=== PATIENT | male | born 1975 | race Caucasian/White ===

== ENCOUNTER 2017-06-18 19:25 | Inpatient (IN) ==
[2017-06-18] MEDS ORDERED: 0.9 % Sodium Chloride 1,000 ML IVC ONE (20:07)
[2017-06-18] MEDS ORDERED: Vancomycin 1,000 MG VIAL IVPB ONE (20:07)
--- NOTE | 2017-06-18 20:13 | Emergency Department Note ---
Disposition Clinical Impression: Abscess, gluteal, left Disposition: Admitted As Inpatient Condition: Good Forms: ED Satisfaction Letter Time of Disposition: 20:14 Skin/Abscess/FB HPI Chief complaint: ED Skin/Abscess/Foreign Body Stated complaint: rectal abscess Time Seen by Provider: 06/18/17 19:49 Source: patient Mode of arrival: ambulatory Limitations: no limitations Nursing Notes Reviewed: Yes Vital Signs Reviewed: Yes HPI Narrative: 41 year old male presents to the eD with complaints of left glueteal abscess and drainage. He states taht he was seen here a few days ago and essentially tried outpainet therapy wiht bactrim and keflex and failed therapy. He states that there is incresed drainage and that the rednes around the area is getting worse and is having intermittmenet subjective fevers at home without nausea or vomitting. He is a diabetic. Talha denies history of MRSA. Home Medications Medication Instructions Recorded Confirmed metFORMIN [Glucophage] 1,000 mg PO BIDWM 01/04/17 06/18/17 Previous Rx's Medication Instructions Recorded HYDROcodone/Acet 5/325 mg [Cardwell 1 tab PO Q6H PRN #3 tab 06/16/17 5-325 mg] Sulfamethoxazole/Trimeth DS 1 each PO BID 10 Days tablet 06/16/17 [Bactrim DS] cephALEXin [Keflex] 500 mg PO QID 10 Days capsule 06/16/17 Allergies Allergy/AdvReac Type Severity Reaction Status Date / Time Penicillins [PCN] Allergy Anaphylaxis Verified 05/31/17 17:27 Constitutional: Reports: fever, chills, weakness. Denies: weight change Eyes: Denies: eye pain, eye discharge, vision change ENT ED: Denies: ear pain, throat pain, dental pain, hearing loss, epistaxis, congestion, dysphagia Cardiovascular: Denies: chest pain, palpitations, dyspnea on exertion, edema, syncope Respiratory: Denies: cough, dyspnea, wheezes, hemoptysis, stridor Gastrointestinal: Denies: abdominal pain, nausea, vomiting, diarrhea, constipation, hematemesis, melena, hematochezia Genitourinary: Denies: urgency, dysuria, frequency, hematuria Musculoskeletal: Denies: back pain, neck pain, arthralgia, myalgia Integumentary: Reports: as per HPI, other (buttock abscess). Denies: rash, abrasion, lesions Neurological: Denies: headache, weakness, numbness, paresthesias, confusion, abnormal gait, vertigo Psychiatric: Denies: anxiety, depression, suicidal thoughts, homicidal thoughts , auditory hallucinations, visual hallucinations Endocrine: Denies: fatigue Hematological/Lymphatic: Denies: easy bleeding, easy bruising Allergic/Immunologic: Denies: facial swelling, urticaria Past Medical History - Past Medical History Medical history: Reports: asthma, diabetes, hypertension, other Surgical history: Reports: no surgical history Psychiatric history: Reports: no psych history - Social History Smoking Status: Never smoker Smokeless Tobacco Status: Yes Alcohol use: Reports: occasionally Drug use: Reports: none Physical Exam - General Limitations: no limitations General appearance: alert, in no apparent distress, obese - Head Head exam: atraumatic, normocephalic, normal inspection - Eye Eye exam: Present: normal appearance, PERRL, EOMI - Expanded Eye Exam Pupils: Left: reactive - ENT ENT exam: normal exam, normal oropharynx, mucous membranes moist - Expanded ENT Exam External ear exam: Present: normal external inspection Mouth exam: Present: normal external inspection Teeth exam: Present: normal inspection Throat exam: Present: normal inspection - Neck Neck exam: Present: normal inspection, full ROM, trachea midline - Chest Chest inspection: Present: normal inspection, symmetric chest wall rise - Respiratory Respiratory exam: Present: normal lung sounds bilaterally - Cardiovascular Cardiovascular exam: Present: regular rate, normal rhythm, normal heart sounds - Abdominal Exam Abdominal exam: Present: soft, Non-Tender. Absent: tenderness, distention, guarding, rebound, rigidity - Extremities Exam Extremities exam: Present: normal inspection, full ROM. Absent: tenderness, pedal edema - Expanded Upper Extremity Exam Shoulder exam: Present: normal inspection, full ROM Arm exam: Present: normal inspection, full ROM Elbow exam: Present: normal inspection, full ROM Forearm/Wrist exam: Present: normal inspection, full ROM Hand exam: Present: normal inspection, full ROM Vascular exam: Normal: capillary refill, radial pulse - Expanded Lower Extremity Exam Hip/Pelvis exam: Present: normal inspection, full ROM Upper leg exam: Present: normal inspection, full ROM Knee exam: Present: normal inspection, full ROM Lower leg exam: Present: normal inspection, full ROM Ankle exam: Present: normal inspection, full ROM Foot/toe exam: Present: normal inspection, full ROM Neurovascular/Tendon exam: Absent: motor deficit, sensory deficit, tendon deficit - Back Exam Back exam: Present: normal inspection, full ROM. Absent: tenderness - Neurological Exam Neurological exam: Present: alert, oriented X3 - Expanded Neurological Exam Patient oriented to: Present: person, place, time Coma Scale Eye Opening: Spontaneous Coma Scale Motor Response: Obeys Commands Coma Scale Verbal Response: Oriented Coma Scale Total: 15 - Psychiatric Psychiatric exam: Present: normal affect, normal mood - Skin Skin exam: Present: warm, dry, intact, normal color - Expanded Skin Exam 1 - 4x4 inch area of erythema with central cavity with dark yellow/green drainage. Course Course Narrative: we will do an i&D and admit to medicine. Vanco has been ordered. labs to correlate. - Consultations Consultation #1: discussed case with Dr. Govea and she accepts patinet for admission. Time: 21:09 Vital Signs Temperature 98.3 F 06/18/17 20:00 Pulse Rate 92 06/18/17 20:00 Respiratory Rate 16 06/18/17 20:00 Blood Pressure 164/105 06/18/17 20:00 O2 Sat by Pulse Oximetry 96 06/18/17 20:00 Temperature 98.3 F 06/18/17 20:00 Pulse Rate 92 06/18/17 20:00 Respiratory Rate 16 06/18/17 20:00 Blood Pressure 164/105 06/18/17 20:00 O2 Sat by Pulse Oximetry 96 06/18/17 20:00 Oxygen Delivery Oxygen Delivery Room Air Procedures - Abscess I/D Consent obtained: verbal consent Site: other (left gluteal) Side (if applicable): left Local Anesthetic: lidocaine 1% Amount of Anesthesia Used (mL): 10 (cc) Technique: incised with #11 blade Irrigation: Yes Packing used?: none Complications: bleeding Skin/Abscess/Foreign Body - Lab Data Result diagrams: 06/18/17 20:29 06/18/17 20:29 Lab Results 06/18/17 06/18/17 06/18/17 Range/Units 20:29 20:29 20:29 WBC 11.6 H (4.3-11.1) K/mcL RBC 5.12 (4.19-5.50) M/mcL Hgb 14.8 (12.9-16.9) g/dL Hct 44.3 (37.5-50.1) % MCV 86.5 (83.0-100.0) fL MCH 28.9 (28.0-33.3) pg MCHC 33.4 (31.6-35.5) g/dL RDW 12.5 (11.5-14.5) % Plt Count 312 (140-400) K/mcL MPV 9.6 (9.4-12.4) fL Immature Gran % 0.4 (0-4) % Seg Neutrophils % 70.4 % Lymphocytes % 15.4 % Monocytes % 9.3 % Eosinophils % 4.0 % Basophils % 0.5 % Neutrophils # 8.1 (1.6-8.9) K/mcL Lymphocytes # 1.8 (0.6-4.6) K/mcL Monocytes # 1.1 (0.0-1.3) K/mcL Eosinophils # 0.5 (0.0-0.6) K/mcL Basophils # 0.1 (0.0-0.2) K/mcL Sodium 138 (136-145) mEq/L Potassium 3.7 (3.5-4.5) mEq/L Chloride 100 (98-109) mEq/L Carbon Dioxide 25 (19-29) mEq/L BUN 14 (8-26) mg/dL Creatinine 0.88 (0.72-1.25) mg/dL Est GFR ( Amer) > 60 (> 60) Est GFR (Non-Af Amer) > 60 (> 60) BUN/Creatinine Ratio 16 (6-26) Glucose 219 H (70-99) mg/dL Calculated Osmolality 293 (280-300) Lactic Acid 3.1 H (0.5-2.2) mmol/L Calcium 8.9 (8.6-10.8) mg/dL
[2017-06-18] MEDS ORDERED: D5% in Water 250 ML ONE (20:25)
[2017-06-18 20:36] LABS: Basophils # 0.1 K/mcL (0.0-0.2); Basophils % 0.5 %; Eosinophils # 0.5 K/mcL (0.0-0.6); Hematocrit 44.3 % (37.5-50.1); Hemoglobin 14.8 g/dL (12.9-16.9); Immature Granulocytes % 0.4 % (0-4); Lymphocytes # 1.8 K/mcL (0.6-4.6); Lymphocytes % 15.4 %; Mean Corpuscular HGB Conc 33.4 g/dL (31.6-35.5); Mean Corpuscular Hemoglobin 28.9 pg (28.0-33.3); Mean Corpuscular Volume 86.5 fL (83.0-100.0); Mean Platelet Volume 9.6 fL (9.4-12.4); Monocytes # 1.1 K/mcL (0.0-1.3); Monocytes % 9.3 %; Neutrophils # 8.1 K/mcL (1.6-8.9); Platelet Count 312 K/mcL (140-400); Red Blood Count 5.12 M/mcL (4.19-5.50); Red Cell Distribution Width 12.5 % (11.5-14.5); Segmented Neutrophils % 70.4 %
[2017-06-18 20:49] LABS: BUN/Creatinine Ratio 16 (6-26); Blood Urea Nitrogen 14 mg/dL (8-26); Calcium 8.9 mg/dL (8.6-10.8); Carbon Dioxide 25 mEq/L (19-29); Chloride 100 mEq/L (98-109); Glucose 219 mg/dL (70-99); Osmolality,Calculated 293 (280-300); Potassium 3.7 mEq/L (3.5-4.5); Sodium 138 mEq/L (136-145); eGFR For African Americans > 60 (> 60); eGFR For Non-African Americans > 60 (> 60)
[2017-06-18] MEDS ORDERED: Naloxone 0.4 MG/ML INJ IVP PRN (21:28)
[2017-06-18] MEDS ORDERED: Ondansetron 4 MG/2 ML VIAL IVP PRN (21:32)
[2017-06-18] MEDS ORDERED: Acetaminophen 325 MG TABLET PO PRN (21:32)
[2017-06-18] MEDS ORDERED: *HR* Dextrose 50 % in Water (Syg) 50 ML SYRINGE IVP PRN (21:36)
[2017-06-18] MEDS ORDERED: D5% in Water 1,000 ML IVC PRN (21:36)
[2017-06-18] MEDS ORDERED: Dextrose Gel 15 GM PO PRN ×2 (21:36)
--- NOTE | 2017-06-18 21:52 | Internal Med History&Physical ---
<Naveen Govea T - Last Filed: 06/18/17 23:07> Date of Encounter: 06/18/17 Internal Medicine - H&P: HPI History of present illness: Mr. Porter is a 41 year old male Internal Medicine - H&P: Meds metFORMIN [Glucophage] 1,000 mg PO BIDWM 01/04/17 [History] HYDROcodone/Acet 5/325 mg [Superior 5-325 mg] 1 tab PO Q6H PRN #3 tab 06/16/17 [Rx] Sulfamethoxazole/Trimeth DS [Bactrim DS] 1 each PO BID 10 Days tablet 06/16/17 [Rx] cephALEXin [Keflex] 500 mg PO QID 10 Days capsule 06/16/17 [Rx] 3 Allergy/AdvReac Type Severity Reaction Status Date / Time Penicillins [PCN] Allergy Anaphylaxis Verified 05/31/17 17:27 All Systems PM: A 10-system review of systems was performed and is negative for pertinent findings except as documented above in the HPI. - Constitutional Vitals: Temp Pulse Resp BP Pulse Ox 98.1 F 87 14 147/111 97 06/18/17 22:09 06/18/17 22:09 06/18/17 22:09 06/18/17 22:09 06/18/17 22:09 Internal Med - H&P Results - Labs CBC & Chem 7: 06/18/17 20:29 06/18/17 20:29 - Attending Attestation I have independently seen and examined this patient on 06/18/17 and reviewed plan of care with the [facility]/resident physician and the patient 41 M with Morbid Obesity, Asthma, DM He presented to ER 3 days ago with a Left gluteal abscess and was given po meds , represents today due to worsening pain, redness, swelling and discharge of his L gluteal region. He endorsed subjective fever and chills. Physical exam: Morbidly Obese, Afebrile, not in distress. exam: L gluteal region with a~2X2cm punctum draining serous fluid, recently I/D by ER team, surrounding redness and swelling, diffusely tender++, no pedal edema. Chest is CTAB, Heart Sounds S1, S2 only, no m/g/r, abdomen is soft and not tender labs and Imaging reviewed: Lactate 3.1, hyperglycemia, others unremarkable Assessment Lactic acidosis L gluteal cellulitis with abscess DM Asthma Morbid Obesity Plan: Add Levaquin for broader coverage, continue Vanco, Send A1C, Insulin to enhance wound healing, follow wound cultures. Repeat lactate after fluis hydration Rest of details as in CNPs documentation <Norma Wall - Last Filed: 06/19/17 01:14> Date of Encounter: 06/19/17 Time of Encounter: 21:52 Assessment and Plan (1) Abscess of buttock, left Current visit: Yes Status: Acute 1 patient was treated as outpatient with Keflex and Bactrim. Continue to experience redness pain and drainage. Abscess was I&D in the ER with wound culture sent. This initiated on vancomycin which we will continue for Levaquin 2 continue with Superior and morphine for pain (2) Diabetes Current visit: No Status: Chronic Accu-Cheks before meals and sliding scale insulin Qualifiers: Diabetes mellitus type: type 2 Diabetes mellitus complication status: without complication Diabetes mellitus group home insulin use: without terminal worker use Qualified Code(s): E11.9 - Type 2 diabetes mellitus without complications (3) DVT prophylaxis Current visit: Yes Status: Acute [facility] Internal Medicine - H&P: HPI Chief complaint: abcess Admitted From: Emergency Dept Plans for Post Hospital Care: Home History of present illness: Mr. Porter is a 41 year old male with medical history of diabetes. Patient was seen at this facility a few days ago for a left gluteal abscess with drainage at that time he was given antibiotics Keflex and Bactrim discharged home. Since that time the drainage has increased and the area has become more tender and red. He has been experiencing intermittent subjective fevers as well as nausea and vomiting at home. He presented to the ER with above complaints. According to records the abscess was I&D with cultures obtained and sent. Lab work did show an elevated lactate 3.1 white count 11.6 He was initiated on vancomycin and has been admitted for further evaluation. Presently patient denies any chest pain this time. The shortness of breath his lung sounds are clear heart sounds are regular S1 and S2 with no O counts were noted. He does have a open wound to his left gluteus which is draining serosanguineous fluid. Surrounding tissue is red. He is hematologically stable this time. I reviewed this case with Dr Govea who agrees with plan Past Med Surg Social Fam HX - Past Medical History Medical history: asthma, diabetes, hypertension, other Psychiatric history: no psych history - Past Surgical History Surgical History: no surgical history - Social History Smoking Status: Never smoker Smokeless Tobacco Status: Yes Alcohol use: occasionally Drug use: none - Additional Family History Additional family history: reviewed noncontributory All Systems PM: A 10-system review of systems was performed and is negative for pertinent findings except as documented above in the HPI. - Constitutional Constitutional: no chills, no fever(s), no night sweats - EENT Eyes: no change in vision, no discharge, no pain, no photophobia Nose, mouth and throat: no dysphagia, no nasal discharge, no neck pain, no sore throat - Cardiovascular Cardiovascular ROS IM: no chest pain, no diaphoresis, no dyspnea, no lightheadedness, no palpitations, no syncope - Respiratory Respiratory: no cough, no dyspnea, no wheezing, no excessive phlegm production - Gastrointestinal Gastrointestinal: no abdominal pain, no diarrhea, no hematemesis, no hematochezia, no melena, no nausea, no vomiting - Musculoskeletal Musculoskeletal ROS IM: no numbness, no tingling - Integumentary Integumentary IM: no rash, no unusual bruising - Neurological Neurological ROS: no confusion, no convulsions, no focal weakness, no numbness, no tingling, no tremor(s) - Hematologic/Lymphatic Hematologic/Lymphatic: no easy bruising - Constitutional Vitals: Temp Pulse Resp BP Pulse Ox 98.3 F 92 16 139/75 96 06/18/17 20:00 06/18/17 20:00 06/18/17 21:34 06/18/17 21:34 06/18/17 20:00 General appearance: Present: A&O X 3, answers questions appropriately - Head Head exam: Present: atraumatic, normocephalic - Eye Eye exam: Present: PERRL, conjuntiva pink, sclera anicteric Pupils: Present: PERRL - Neck Neck exam general surgery: Present: supple, trachea midline. Absent: lymphadenopathy - Respiratory Respiratory exam: Present: CTAB. Absent: accessory muscle use, rales, rhonchi, wheezes - Cardiovascular Cardiovascular exam: Present: RRR, +S1, +S2. Absent: diastolic murmur, gallop, rubs, systolic murmur - GI/Abdominal GI/Abdominal exam: Present: normal bowel sounds, soft, no peritoneal signs. Absent: distended, tenderness - Extremities Exam Extremities exam: Present: warm, radial pulses palpable and symmetrical. Absent : calf tenderness, cyanotic, pedal edema - Neurological Exam Neurological exam: Present: CN II-XII intact, oriented X3, no focal deficits. Absent: pronater drift, facial droop, speech deficit - Skin Skin exam: Present: dry, erythema, intact - Expanded Skin Exam Type of lesion: Present: abscess (Left gluteus with erythremia, abscess 2x2 cm draining serosanguineous) Internal Med - H&P Results - Labs CBC & Chem 7: 06/18/17 20:29 06/18/17 20:29
[2017-06-18] MEDS ORDERED: *HR* Morphine 2 MG/ML SYRINGE IVP PRN (22:36)
[2017-06-18] MEDS: 0.9 % Sodium Chloride 1,000 ML IVC SCH (22:59)
[2017-06-18] MEDS ORDERED: Vancomycin 1,000 MG in D5% in Water 250 ML IVPB ONE (23:00)
[2017-06-18] MEDS: Levofloxacin 750 MG/150 ML 750 MG/150 ML BAG IVPB SCH (23:00)
[2017-06-19] MEDS: *HR* HYDROcodone/Acet 5/325 mg TABLET PO PRN (02:00)
[2017-06-19 04:39] LABS: Basophils % 0.4 %; Eosinophils # 0.5 K/mcL (0.0-0.6); Hematocrit 39.6 % (37.5-50.1); Hemoglobin 13.3 g/dL (12.9-16.9); Immature Granulocytes % 0.3 % (0-4); Lymphocytes % 19.8 %; Mean Corpuscular HGB Conc 33.6 g/dL (31.6-35.5); Mean Corpuscular Hemoglobin 29.5 pg (28.0-33.3); Mean Corpuscular Volume 87.8 fL (83.0-100.0); Mean Platelet Volume 9.4 fL (9.4-12.4); Monocytes % 9.8 %; Neutrophils # 6.6 K/mcL (1.6-8.9); Platelet Count 268 K/mcL (140-400); Red Blood Count 4.51 M/mcL (4.19-5.50); Red Cell Distribution Width 12.6 % (11.5-14.5); Segmented Neutrophils % 64.7 %
[2017-06-19 04:46] LABS: Hemoglobin A1C 8.2 %
[2017-06-19 04:58] LABS: BUN/Creatinine Ratio 16 (6-26); Blood Urea Nitrogen 12 mg/dL (8-26); Calcium 8.5 mg/dL (8.6-10.8); Carbon Dioxide 27 mEq/L (19-29); Chloride 101 mEq/L (98-109); Glucose 154 mg/dL (70-99); Osmolality,Calculated 285 (280-300); Potassium 3.6 mEq/L (3.5-4.5); Sodium 136 mEq/L (136-145); eGFR For African Americans > 60 (> 60); eGFR For Non-African Americans > 60 (> 60)
[2017-06-19] MEDS: *HR* Enoxaparin 40 MG/0.4 ML SYRINGE SQ SCH (06:34)
[2017-06-19] MEDS: Insulin LISPRO 300 UNITS/3 ML VIAL SQ SCH ×4 (07:48→21:46)
[2017-06-19] MEDS ORDERED: Vancomycin 2,000 MG in D5% in Water 250 ML IVPB SCH (09:00)
[2017-06-19] MEDS: 0.9 % Sodium Chloride 1,000 ML IVC SCH (09:42)
[2017-06-19] MEDS ORDERED: Vancomycin 2,000 MG in D5% in Water 500 ML IVPB SCH (10:00)
--- NOTE | 2017-06-19 10:03 | General Surgery Consult Note ---
Date of Encounter: 06/19/17 Time of Encounter: 09:30 Assessment and Plan (1) Abscess of buttock, left Current Visit: Yes Status: Acute The abscess is open and draining. The area needs to be packed with iodoform once a day with a secondary dressing of gauze and tape. We will be glad to follow along with you History of Present Illness Consult date: 06/19/17 Reason for consult: other (Gluteal abscess) History of present illness: The patient had onset of gluteal abscess about one week ago. He has shakes chills and fever. He sought evaluation in the emergency department. The area was incised and drained but not packed. Presented back to the emergency room with continued pain in the left gluteus. He was admitted for IV antibiotic therapy. He does have diabetes however his fingerstick glucose levels have been reasonable between 130 and 150 at home. On close examination he does not have a perirectal or rectal abscess. He has an isolated mid gluteal abscess that appears to be subcutaneous. We will pack this with iodoform. Secondary dressing of gauze and tape Past Med Surg Social Fam HX - Past Medical History Medical history: asthma, diabetes, hypertension, other Psychiatric history: no psych history - Past Surgical History Surgical History: no surgical history - Social History Smoking Status: Never smoker Smokeless Tobacco Status: Yes Alcohol use: occasionally Drug use: none Medications and Allergies metFORMIN [Glucophage] 1,000 mg PO BIDWM 01/04/17 [History] HYDROcodone/Acet 5/325 mg [Elmore 5-325 mg] 1 tab PO Q6H PRN #3 tab 06/16/17 [Rx] Sulfamethoxazole/Trimeth DS [Bactrim DS] 1 each PO BID 10 Days tablet 06/16/17 [Rx] cephALEXin [Keflex] 500 mg PO QID 10 Days capsule 06/16/17 [Rx] 3 Allergy/AdvReac Type Severity Reaction Status Date / Time Penicillins [PCN] Allergy Anaphylaxis Verified 05/31/17 17:27 Review of Systems All systems PM: A 10-system review of systems was performed and is negative for pertinent findings except as documented above in the HPI. General Surgery Exam Initial Vital Signs Temp Pulse Resp BP Pulse Ox 98.3 F 92 16 164/105 96 06/18/17 20:00 06/18/17 20:00 06/18/17 20:00 06/18/17 20:00 06/18/17 20:00 - General physical appearance well developed, well nourished, other (Morbid obesity) - Neck no masses, no bruits, trachea midline, no lymphadectomy, no venous distension - Respiratory normal expansion, normal respiratory effort, clear to percussion, clear to auscultation - Cardiovascular Cardiovascular exam: Present: RRR, 15, 16 - Abdomen Abdomen general surgery: Present: bowel sounds present, soft, non tender - Integumentary Integumentary general surgery: Present: other (Cutaneous abscess actively draining pus on the left gluteus) - Neurologic Present: CN 2-12 grossly intact, normal coordination, normal sensation - Psychiatric Psychiatric general surgery: Present: appropriate, oriented to person, oriented to place, oriented to time, speech is normal, memory intact Exam Initial Vital Signs Temp Pulse Resp BP Pulse Ox 98.3 F 92 16 164/105 96 06/18/17 20:00 06/18/17 20:00 06/18/17 20:00 06/18/17 20:00 06/18/17 20:00 Results - Labs 06/19/17 04:24 06/19/17 04:24 Abnormal lab results Glucose 154 mg/dL (70-99) H 06/19/17 04:24 POC Glucose 132 (58-89) H 06/19/17 07:02 Hemoglobin A1c 8.2 % (-5.6) H 06/19/17 04:24 Calcium 8.5 mg/dL (8.6-10.8) L 06/19/17 04:24 Diabetes panel 06/19/17 06/19/17 Range/Units 04:24 04:24 Sodium 136 (136-145) mEq/L Potassium 3.6 (3.5-4.5) mEq/L Chloride 101 (98-109) mEq/L Carbon Dioxide 27 (19-29) mEq/L BUN 12 (8-26) mg/dL Creatinine 0.76 (0.72-1.25) mg/dL Glucose 154 H (70-99) mg/dL Hemoglobin A1c 8.2 H ( - 5.6) % Calcium 8.5 L (8.6-10.8) mg/dL Calcium panel 06/19/17 Range/Units 04:24 Calcium 8.5 L (8.6-10.8) mg/dL Pituitary panel 06/19/17 Range/Units 04:24 Sodium 136 (136-145) mEq/L Potassium 3.6 (3.5-4.5) mEq/L Chloride 101 (98-109) mEq/L Carbon Dioxide 27 (19-29) mEq/L BUN 12 (8-26) mg/dL Creatinine 0.76 (0.72-1.25) mg/dL Glucose 154 H (70-99) mg/dL Calcium 8.5 L (8.6-10.8) mg/dL Adrenal panel 06/19/17 Range/Units 04:24 Sodium 136 (136-145) mEq/L Potassium 3.6 (3.5-4.5) mEq/L Chloride 101 (98-109) mEq/L Carbon Dioxide 27 (19-29) mEq/L BUN 12 (8-26) mg/dL Creatinine 0.76 (0.72-1.25) mg/dL Glucose 154 H (70-99) mg/dL Calcium 8.5 L (8.6-10.8) mg/dL All other labs normal. Consult Discharge Plan - Plan Referrals: NONE,PCP [Primary Care Provider] -
--- NOTE | 2017-06-19 14:18 | Internal Med Progress Note ---
Date of Encounter: 06/19/17 Time of Encounter: 09:10 - Assessment and plan (1) Abscess of buttock, left Current Visit: Yes Status: Acute Assessment and plan: Continue current antibiotics. Will follow wound cultures. Consulted surgery for recommendations to see if patient needs any further I&D. Moderate risk for complications. (2) Diabetes Current Visit: Yes Status: Chronic Assessment and plan: Monitor blood sugars. Will adjust insulin regimen accordingly. Diabetic diet Qualifiers: Diabetes mellitus type: type 2 Diabetes mellitus complication status: without complication Diabetes mellitus ad terminal makeup operator insulin use: without alf use Qualified Code(s): E11.9 - Type 2 diabetes mellitus without complications (3) DVT prophylaxis Current Visit: Yes Status: Acute Assessment and plan: Continue Lovenox - Subjective Interval history: Patient feels better today. Less pain and tenderness in his left gluteal region. No fever reported. - Constitutional Vitals: Temp Pulse Resp BP Pulse Ox 98.0 F 70 16 126/77 97 06/19/17 10:10 06/19/17 10:10 06/19/17 10:10 06/19/17 10:10 06/19/17 10:10 General appearance: Present: cooperative, A&O X 3, answers questions appropriately - Neck Neck exam general surgery: Present: supple, trachea midline. Absent: lymphadenopathy - Respiratory Respiratory exam: Present: CTAB. Absent: accessory muscle use, rales, rhonchi, wheezes - Cardiovascular Cardiovascular exam: Present: RRR, +S1, +S2. Absent: diastolic murmur, gallop, rubs, systolic murmur - GI/Abdominal GI/Abdominal exam: Present: normal bowel sounds, soft, no peritoneal signs. Absent: distended, tenderness - Extremities Exam Extremities exam: Present: warm, radial pulses palpable and symmetrical. Absent : calf tenderness, cyanotic, pedal edema - Skin Additional comments: Open wound in his left gluteal region. Surrounding erythema seems to have subsided. No fluctuance palpable underneath. Wound is draining purulent material. Internal Medicine: Result - Labs CBC & Chem 7: 06/19/17 04:24 06/19/17 04:24 Labs: Short CBC 06/19/17 Range/Units 04:24 WBC 10.2 (4.3-11.1) K/mcL Hgb 13.3 D (12.9-16.9) g/dL Hct 39.6 (37.5-50.1) % Plt Count 268 (140-400) K/mcL Neutrophils # 6.6 (1.6-8.9) K/mcL BMP 06/19/17 04:24 Sodium 136 Potassium 3.6 Chloride 101 Carbon Dioxide 27 BUN 12 Creatinine 0.76 Glucose 154 H Calcium 8.5 L Consult Discharge Plan - Plan Referrals: NONE,PCP [Primary Care Provider] -
[2017-06-19] MEDS: Insulin DETEMIR 100 UNIT/ML X5UNITS SQ SCH (21:45)
[2017-06-19] MEDS: Vancomycin 1,750 MG in D5% in Water 500 ML IVPB SCH (21:45)
[2017-06-20] MEDS: Levofloxacin 750 MG/150 ML 750 MG/150 ML BAG IVPB SCH (00:26)
[2017-06-20] MEDS: *HR* HYDROcodone/Acet 5/325 mg TABLET PO PRN ×2 (00:26→20:47)
[2017-06-20] MEDS: *HR* Enoxaparin 40 MG/0.4 ML SYRINGE SQ SCH (06:32)
[2017-06-20] MEDS: Vancomycin 1,750 MG in D5% in Water 500 ML IVPB SCH ×2 (09:41→20:44)
[2017-06-20] MEDS: Insulin DETEMIR 100 UNIT/ML X5UNITS SQ SCH ×2 (09:42→22:07)
[2017-06-20] MEDS: Insulin LISPRO 300 UNITS/3 ML VIAL SQ SCH ×4 (09:43→22:05)
--- NOTE | 2017-06-20 11:20 | Discharge Summary ---
Date of Encounter: 06/20/17 Time of Encounter: 11:08 - Discharge Diagnosis (1) Abscess of buttock, left Priority: Primary Status: Acute (2) Diabetes Priority: Secondary Status: Chronic Qualifiers: Diabetes mellitus type: type 2 Diabetes mellitus complication status: without complication Diabetes mellitus adjunct faculty for medical terminology insulin use: without adjunct faculty for medical terminology use Qualified Code(s): E11.9 - Type 2 diabetes mellitus without complications (3) DVT prophylaxis Priority: Secondary Status: Acute - Discharge Medications Prescriptions: Clindamycin HCl 150 mg PO QID #40 capsule Clindamycin HCl 300 mg PO QID #40 capsule Lactobacillus [Culturelle] 1 each PO BID #20 cap.sprink Home Medications: metFORMIN [Glucophage] 1,000 mg PO BIDWM 01/04/17 [History] HYDROcodone/Acet 5/325 mg [Piffard 5-325 mg] 1 tab PO Q6H PRN #3 tab 06/16/17 [Rx] Clindamycin HCl 150 mg PO QID #40 capsule 06/20/17 [Rx] Clindamycin HCl 300 mg PO QID #40 capsule 06/20/17 [Rx] Lactobacillus [Culturelle] 1 each PO BID #20 cap.sprink 06/20/17 [Rx] Allergies/Adverse Reactions: 3 Allergy/AdvReac Type Severity Reaction Status Date / Time Penicillins [PCN] Allergy Anaphylaxis Verified 05/31/17 17:27 Date of admission: 06/18/17 21:28 Primary care physician: PCP NONE Consults: 06/19/17 09:02 Consult to Surgery [CONS] Routine Consulting Provider: [facility] Reason for Consult: Gluteal abscess Time Notified: 09:02 Call Completed: Yes Discharging clinician: Ronen Del Rosario Anticipated date of discharge: 06/20/17 - Patient Status Disposition: Home, Self-Care Condition: Good Functional capacity at discharge: independent ambulation Overall status at discharge: patient is progressing back to baseline - Discharge Instructions Instructions: Diabetes Mellitus Type 2 in Adults (DC), Abscess (GEN) Follow Up With: NONE,PCP [Primary Care Provider] - Additional Instructions: Pack the wound with quarter-inch to half-inch iodoform once a day with a secondary dressing of gauze and AVD pads. Follow up in the wound clinic within 1 week - Diet and Activity Activity: increase activity as tolerated Diet: diabetic diet Hospital course: Mr. Porter is a 41 year old male patient with history of diabetes mellitus type 2 who was hospitalized here with left gluteal abscess. She had initially been seen in the ER 3 days back to hospitalization. At that time the patient was found to have an abscess there which was incised and drained. He was sent home on Bactrim and cephalexin. However his symptoms did not improve and so he returned to the ER. The wound was again incised and drained. He was noted to have purulent discharge none. He was then hospitalized with to treat to treat with IV antibiotics. Surgery was consulted to evaluate the patient. They recommended packing the wound with iodoform. Since then the patient has had significant improvement with regards to cellulitis surrounding the abscess. He still has some pedal and drainage and surgery recommends continued IV antibiotics through today. He will be discharged later today after he receives his last dose of IV antibiotics for today. He will follow up with surgery as outpatient in the wound clinic next week. He will be discharged home on clindamycin as his wound culture is positive for MRSA. - Time Spent with Patient Total time spent providing and/or coordinating discharge services: Less than 30 minutes (25 min) - Constitutional Vitals: Temp Pulse Resp BP Pulse Ox 97.7 F 75 16 126/81 97 06/20/17 10:32 06/20/17 10:32 06/20/17 10:32 06/20/17 10:32 06/20/17 10:32 General appearance: Present: cooperative, A&O X 3, answers questions appropriately - Respiratory Respiratory exam: Present: CTAB. Absent: accessory muscle use, rales, rhonchi, wheezes - Cardiovascular Cardiovascular exam: Present: RRR, +S1, +S2. Absent: diastolic murmur, gallop, rubs, systolic murmur - Extremities Exam Extremities exam: Present: warm, radial pulses palpable and symmetrical. Absent : calf tenderness, cyanotic, pedal edema - Neurological Exam Neurological exam: Present: alert, CN II-XII intact, oriented X3, no focal deficits. Absent: facial droop, speech deficit - Skin Skin exam: Present: dry, intact Additional comments: Left gluteal abscess wound currently packed and bandaged.
--- NOTE | 2017-06-20 12:54 | General Surgery Progress Note ---
Date of Encounter: 06/20/17 Time of Encounter: 10:15 - Assessment and Plan (1) Abscess of buttock, left Current Visit: Yes Status: Acute The abscess is open and draining. The area needs to be packed with iodoform once a day with a secondary dressing of gauze and tape. We will be glad to follow along with you 06/20/2017. We will continue with iodoform wound packing and IV antibiotics. The patient is discharged I will be glad to follow him as an outpatient in wound clinic Subjective Narrative: The patient is having less pain today. His white blood cell count has normalized. We will continue iodoform packing of the left gluteal wound. I would recommend continuing IV antibiotics at this point Objective Vital Signs - Last 8 Hours Temp Pulse Resp BP Pulse Ox 06/20/17 10:32 97.7 F 75 16 126/81 97 06/20/17 07:07 97.7 F 70 18 127/84 98 Intake and Output 06/19/17 06/20/17 06/20/17 23:59 07:59 15:59 Intake Total 500 / 500 1150 / 1150 360 / 360 Output Total 1350 / 1350 1550 / 1550 0 / 0 Balance -850 / -850 -400 / -400 360 / 360 Intake: IV Fluids 500 / 500 1150 / 1150 0.9 % Sodium Chloride 1,000 ML 1000 / 1000 @ 100 mls/hr IVC .Q10H [facility] Rx#: [id number] Levaquin Premix 750mg/150 mL 150 / 150 750 mg In 150 ml @ 100 mls/hr IVPB Q24H [facility]KE[facility] Rx#:[id number] Vancocin 1,750 MG In Dextrose 5 500 / 500 % 500 ML @ 333.333 mls/hr IVPB Q12H [facility] Rx#:[id number] Oral 360 / 360 Output: Urine 1350 / 1350 1550 / 1550 0 / 0 Other: Meal Breakfast Percent of Meal Consumed 100% # Bowel Movements 0 0 Weight 177.5 kg Blood Glucose* 176 117 193 Patient Weight 06/20/17 23:59 Weight 177.5 kg - General physical appearance well developed, well nourished, obese - Respiratory normal expansion, normal respiratory effort, clear to percussion, clear to auscultation - Cardiovascular Cardiovascular exam: Present: RRR, no murmurs/rubs/gallops - Abdomen Abdomen: Present: bowel sounds present, soft, non tender - Integumentary other (No surrounding erythema on the packing site on the left gluteus. He continues to drain purulent material) - Labs 06/19/17 04:24 06/19/17 04:24 Consult Discharge Plan - Plan Instructions: Diabetes Mellitus Type 2 in Adults (DC), Abscess (GEN) Additional Instructions: Pack the wound with quarter-inch to half-inch iodoform once a day with a secondary dressing of gauze and AVD pads. Referrals: NONE,PCP [Primary Care Provider] - Prescriptions: Clindamycin HCl 150 mg PO QID #40 capsule Clindamycin HCl 300 mg PO QID #40 capsule Lactobacillus [Culturelle] 1 each PO BID #20 cap.sprink
[2017-06-20 21:51] VITALS: BP 168/112
[2017-06-20] MEDS ORDERED: Aminoglycoside Consult 1 EACH MC ONE (23:46)
== END 2017-06-20 23:47 | disposition home or self-care (01) | DRG 603 ==
LOC: EMEROO 19:25 → 3ANU 19:25
PROVIDERS: ADMIT Internal Medicine; ATTEND Internal Medicine